=== PATIENT | male | born 1975 ===

== ENCOUNTER 2021-05-18 08:04 | Inpatient (IN) | payer SELFPAY ==
[~2021-05-18] VITALS: Ht 185.4 cm; Wt 98.7 kg
[2021-05-18] MEDS ORDERED: FENTANYL PF 100 MCG/2ML ONE ×2 (08:08→08:10)
[2021-05-18] MEDS ORDERED: HYDROCORTISONE 100 MG INJ. IVPush SCH (08:30)
[2021-05-18] MEDS ORDERED: PLEASE ENTER HEIGHT AND WEIGHT MC SCH (08:30)
[2021-05-18] MEDS ORDERED: HYDROCORTISONE 100 MG INJ. ONE (08:30)
[2021-05-18] MEDS ORDERED: DEXTROSE 5% 1,000 ML IV SCH (08:30)
[2021-05-18] MEDS ORDERED: VECURONIUM 10 MG IVPush ONE (08:30)
--- NOTE | 2021-05-18 08:30 | NUR ---
PT MEDICATED WITH FENTANYL, REFLECTED IN DOSAGE ON EMAR. PER DR MONTGOMERY, HOLD VECURONIUM AT THIS TIME.
[2021-05-18] MEDS ORDERED: FENTANYL PF 100 MCG/2ML IVPush ONE (09:00)
[2021-05-18] MEDS ORDERED: NOREPINEPHRINE 8 MG in SODIUM CHLORIDE 0.9% 242 ML IV PRN ×2 (09:00→09:30)
--- NOTE | 2021-05-18 09:05 | NUR ---
ASSIST RN::VALLADARES INSERTED PER PROTOCOL WITH OBSERVER JORDY ALVAREZ. NO URINE OUTPUT AT THIS TIME. [facility]OV[facility] HAD SCANT URINE PRESENT IN COLLECTION BAG.
[2021-05-18] MEDS ORDERED: PROPOFOL 100 ML IV ONE (09:26)
[2021-05-18] MEDS ORDERED: PHARMACY MAY ADJ FOR RENAL FX MC SCH (09:30)
[2021-05-18] MEDS ORDERED: ACETAMINOPHEN 650 MG/20.3 ML UDC PO/NG PRN (09:30)
[2021-05-18] MEDS ORDERED: BISACODYL 10 MG SUPP PR PRN (09:30)
[2021-05-18] MEDS ORDERED: LACTULOSE 20 GM/30 ML UDC NG PRN (09:30)
[2021-05-18] MEDS ORDERED: LIDOCAINE-MPF 1%, 2ML ENDO PRN (09:30)
[2021-05-18] MEDS ORDERED: SENNA/DOCUSATE TABLET NG PRN (09:30)
[2021-05-18] MEDS ORDERED: FENTANYL PF 100 MCG/2ML IVPush PRN (09:30)
[2021-05-18] MEDS ORDERED: SODIUM CHLORIDE 0.9% 1,000ML IVBOLUS ONE ×2 (09:30→10:30)
[2021-05-18] MEDS ORDERED: SENNA 176 MG/5 ML ORAL SOL NG PRN (09:30)
[2021-05-18] MEDS: PROPOFOL 100 ML IV PRN ×4 (09:37→21:33)
[2021-05-18 09:50] LABS: MEAN CORPUSCULAR HEMOGLOBIN 33.2 pg (27.5-34.5); MEAN CORPUSCULAR HGB CONC 32.1 g/dL (33.2-36.2); MEAN PLATELET VOLUME 9.9 fL (7.4-10.4); PLATELET COUNT 73 x10^3/uL (130-400); RED BLOOD COUNT 4.63 x10^6/uL (4.38-5.82); RED CELL DISTRIBUTION WIDTH 16.7 % (9.4-14.8)
[2021-05-18 09:57] LABS: PH, VENOUS 7.315 pH (7.320-7.420)
[2021-05-18 09:58] LABS: FIO2 100 %
--- NOTE | 2021-05-18 10:00 | NUR ---
US COMPLETED, LAB DRAWN. STILL NO OUTPUT WITH BLAINE. DR MONTGOMERY AT BEDSIDE FOR ASSESSMENT UPDATE. PLAN TO GO TO CT. RN TO CALL RT. SECOND RN AVAILABLE FOR TRANSPORT ASSIST. STILL AWAITING BEDASSIGNMENT AND ORDER.
[2021-05-18 10:01] LABS: ALBUMIN 2.4 g/dL (3.4-5.0); ANION GAP 19 mmol/L (5-15); CALCIUM 6.8 mg/dL (8.5-10.1); CHLORIDE 96 mmol/L (98-107); CREATININE 3.25 mg/dL (0.7-1.3)
[2021-05-18 10:05] LABS: ALKALINE PHOSPHATASE 134 U/L (45-117); BILIRUBIN,TOTAL 6.7 mg/dL (0.2-1.0); TOTAL PROTEIN 5.2 g/dL (6.4-8.2)
--- NOTE | 2021-05-18 10:07 | NUR ---
DR MONTGOMERY AT BEDSIDE, AWARE OF BP. PT TO REMAIN WITH PRESSURE CURRENTLY FOR CT SCAN. TESFAYE RICE CALLED, CT READY FOR PT.
[2021-05-18 10:08] LABS: INTERNATIONAL NORMALIZED RATIO 2.73 (0.93-1.1); PROTHROMBIN TIME 27.8 Seconds (9.6-11.5)
[2021-05-18 10:14] LABS: BAND#(MANUAL) 1.24 x10^3/uL; BANDS%(MANUAL) 7 % (0-7)
[2021-05-18 10:15] LABS: LYMPH#(MANUAL) 0.89 x10^3/uL (1-3.4); LYMPHS% (MANUAL) 5 % (22-44); MONOS#(MANUAL) 0.71 x10^3/uL (0.3-2.7); MONOS% (MANUAL) 4 % (2-9); SEG#(MANUAL) 14.87 x10^3/uL (1.8-6.8); SEGS% (MANUAL) 84 % (42-75)
[2021-05-18 10:16] LABS: <PLATELET ESTIMATE> DECREASED; <PLT MORPHOLOGY> NORMAL PLT MORPH; ANISOCYTOSIS 1+; POLYCHROMASIA 1+
[2021-05-18] MEDS: AMPICILLIN/SULBACTAM 3 GM in SODIUM CHLORIDE 0.9% 100 ML IV SCH ×2 (10:30→19:07)
[2021-05-18 10:35] LABS: ALANINE AMINOTRANSFERASE 3445 U/L (12-78); TRIGLYCERIDES 156 mg/dL (50-200)
[2021-05-18] MEDS ORDERED: OMNIPAQUE 350 MG/ML, 75ML BOTTLE ONE (10:49)
[2021-05-18 10:57] VITALS: BP 124/86
--- NOTE | 2021-05-18 11:01 | NUR ---
DISCUSSION WITH DR MONTGOMERY AND DR FRAUSTO REGARDING PT'S RESPIRATIONS AND CONCERNS WITH RT. RN DISCUSSED BENEFITS OF ADMINISTRATION OF VECURONIUM WITH PROPOFOL ADMINISTRATION. PER DR FRAUSTO, HOLD VECURONIUM.
[2021-05-18] MEDS ORDERED: LABETALOL 5MG/ML, 20ML IVPush PRN (11:30)
[2021-05-18] MEDS ORDERED: FENTANYL PF 1,000 MCG in SODIUM CHLORIDE 0.9% 80 ML IV PRN (11:30)
[2021-05-18] MEDS ORDERED: SODIUM BICARBONATE 8.4% 150 MEQ in DEXTROSE 5% 1,000 ML IV SCH (11:30)
[2021-05-18] MEDS ORDERED: HEPARIN 5,000 UNITS/ML, 1ML SQ SCH (11:30)
--- NOTE | 2021-05-18 11:38 | NUR ---
PT TRANSPORTED TO CCU WITH 2 RNS AND FIRE ENGINE OPERATOR.
--- NOTE | 2021-05-18 11:40 | NUR ---
FREQUENT VS MEASUREMENT PRINTED OUT FOR PHSYICAL CHART.
[2021-05-18] MEDS: NOREPINEPHRINE 32 MG in SODIUM CHLORIDE 0.9% 218 ML IV PRN ×3 (11:43→21:33)
[2021-05-18] MEDS: EPINEPHRINE 5 MG in SODIUM CHLORIDE 0.9% 245 ML IV PRN ×2 (11:45→19:19)
[2021-05-18] MEDS: HEPARIN 5,000 UNITS/ML, 1ML SQ SCH ×2 (13:04→20:41)
[2021-05-18] MEDS: PANTOPRAZOLE 40 MG IV IV SCH (13:08)
[2021-05-18] MEDS: FENTANYL PF 1,000 MCG in SODIUM CHLORIDE 0.9% 80 ML IV PRN ×2 (13:22→19:19)
[2021-05-18 15:13] LABS: TROPONIN I 0.384 ng/mL (0.000-0.045)
[2021-05-18] MEDS ORDERED: SODIUM BICARB 8.4%, 50ML SYRINGE ONE (15:18)
[2021-05-18] MEDS ORDERED: SODIUM BICARBONATE 1 MEQ/ML, 50ML VIAL IVPush ONE (15:30)
[2021-05-18 21:12] LABS: TROPONIN I 0.594 ng/mL (0.000-0.045)
[2021-05-18] MEDS ORDERED: VASOPRESSIN 20 UNIT in SODIUM CHLORIDE 0.9% 99 ML IV PRN (23:30)
[2021-05-19] MEDS: SODIUM BICARBONATE 8.4% 150 MEQ in DEXTROSE 5% 1,000 ML IV SCH ×2 (01:42→06:52)
[2021-05-19] MEDS ORDERED: HEPARIN 25,000 UNITS/250ML PMX 250 ML IV PRN (02:00)
[2021-05-19] MEDS ORDERED: HEPARIN 5,000 UNITS/ML, 1ML IV ONE (02:00)
[2021-05-19] MEDS ORDERED: HEPARIN 5,000 UNITS/ML, 1ML IV PRN (02:00)
[2021-05-19 02:08] LABS: MEAN CORPUSCULAR HGB CONC 33.7 g/dL (33.2-36.2); MEAN PLATELET VOLUME 10.7 fL (7.4-10.4); PLATELET COUNT 78 x10^3/uL (130-400); RED BLOOD COUNT 4.59 x10^6/uL (4.38-5.82); RED CELL DISTRIBUTION WIDTH 16.3 % (9.4-14.8)
[2021-05-19 02:26] LABS: <PLATELET ESTIMATE> DECREASED; <PLT MORPHOLOGY> NORMAL PLT MORPH; ANISOCYTOSIS 1+; BAND#(MANUAL) 1.42 x10^3/uL; BANDS%(MANUAL) 8 % (0-7); LYMPH#(MANUAL) 1.77 x10^3/uL (1-3.4); LYMPHS% (MANUAL) 10 % (22-44); MONOS#(MANUAL) 0.35 x10^3/uL (0.3-2.7); MONOS% (MANUAL) 2 % (2-9); POLYCHROMASIA 1+; SEG#(MANUAL) 14.16 x10^3/uL (1.8-6.8); SEGS% (MANUAL) 80 % (42-75)
[2021-05-19] MEDS: AMPICILLIN/SULBACTAM 3 GM in SODIUM CHLORIDE 0.9% 100 ML IV SCH ×2 (02:29→12:13)
[2021-05-19 05:03] LABS: ANION GAP 16 mmol/L (5-15); CHLORIDE 92 mmol/L (98-107); CREATININE 4.24 mg/dL (0.7-1.3)
[2021-05-19 05:06] LABS: MEAN CORPUSCULAR HEMOGLOBIN 34.1 pg (27.5-34.5); MEAN PLATELET VOLUME 10.9 fL (7.4-10.4); PLATELET COUNT 76 x10^3/uL (130-400); RED BLOOD COUNT 4.54 x10^6/uL (4.38-5.82); RED CELL DISTRIBUTION WIDTH 16.4 % (9.4-14.8)
[2021-05-19 05:18] LABS: CALCIUM 5.1 mg/dL (8.5-10.1)
[2021-05-19 05:27] LABS: ANISOCYTOSIS 1+; BAND#(MANUAL) 1.34 x10^3/uL; BANDS%(MANUAL) 7 % (0-7); LYMPH#(MANUAL) 1.72 x10^3/uL (1-3.4); LYMPHS% (MANUAL) 9 % (22-44); METAMYELOCYTES# (MANUAL) 0.57 x10^3/uL (0-0); METAMYELOCYTES% (MANUAL) 3 % (0-1); MONOS#(MANUAL) 0.19 x10^3/uL (0.3-2.7); MONOS% (MANUAL) 1 % (2-9); POLYCHROMASIA 1+; SEG#(MANUAL) 15.28 x10^3/uL (1.8-6.8); SEGS% (MANUAL) 80 % (42-75)
[2021-05-19 05:31] LABS: <PLATELET ESTIMATE> DECREASED; LARGE PLATELETS 1+; PMNS WITH VACUOLES 1+
[2021-05-19] MEDS: NOREPINEPHRINE 32 MG in SODIUM CHLORIDE 0.9% 218 ML IV PRN (06:52)
[2021-05-19] MEDS ORDERED: MAGNESIUM SULFATE PMX 2GM/50ML 50 ML IV ONE (07:00)
[2021-05-19] MEDS ORDERED: CALCIUM CHLORIDE 13.6 MEQ in SODIUM CHLORIDE 0.9% 100 ML IV ONE (07:00)
[2021-05-19] MEDS: PANTOPRAZOLE 40 MG IV IV SCH (09:58)
[2021-05-19] MEDS ORDERED: SODIUM BICARBONATE 8.4% 150 MEQ in DEXTROSE 5% 1,000 ML IV SCH (11:30)
[2021-05-19 12:47] LABS: ALBUMIN 2.4 g/dL (3.4-5.0); BILIRUBIN, DIRECT 5.1 mg/dL (0.1-0.2)
[2021-05-19 12:59] LABS: ALKALINE PHOSPHATASE 150 U/L (45-117); BILIRUBIN,TOTAL 7.1 mg/dL (0.2-1.0); TOTAL PROTEIN 4.7 g/dL (6.4-8.2)
[2021-05-19 13:05] LABS: ALANINE AMINOTRANSFERASE 6314 U/L (12-78)
[2021-05-19] MEDS ORDERED: LORazepam 2 MG/ML, 1ML IV ONE (19:00)
[2021-05-19] MEDS ORDERED: MORPHINE SULFATE 4 MG/ML, 1ML IV ONE (19:00)
[2021-05-19] MEDS ORDERED: MORPHINE 30MG/30ML PCA.SYR IV SCH (19:00)
[2021-05-19] MEDS: LORazepam 2 MG/ML, 1ML IV PRN ×2 (19:18→19:46)
[2021-05-19] MEDS ORDERED: SCOPOLAMINE PATCH, 1.5MG PATCH.TD72 TD PRN (19:30)
[2021-05-20] MEDS ORDERED: AMPICILLIN/SULBACTAM 3 GM in SODIUM CHLORIDE 0.9% 100 ML IV SCH
== END 2021-05-19 22:48 | disposition expired | DRG 208 ==
LOC: ED 10:48 → CCU 10:49 → ED 11:10 → CCU 05-19 10:30
PROVIDERS: ADMIT Internal Medicine; ATTEND Internal Medicine
PROC: 5A1945Z Respiratory Ventilation, 24-96 Consecutive Hours (ICD-10-PCS; principal; 2021-05-18)
PROC: 0BH17EZ Insertion of Endotracheal Airway into Trachea, Via Natural or Artificial Opening (ICD-10-PCS; 2021-05-18)
PROC: 02HV33Z Insertion of Infusion Device into Superior Vena Cava, Percutaneous Approach (ICD-10-PCS; 2021-05-18)
PROC: 03HY32Z Insertion of Monitoring Device into Upper Artery, Percutaneous Approach (ICD-10-PCS; 2021-05-18)
PROC: 4A133B1 Monitoring of Arterial Pressure, Peripheral, Percutaneous Approach (ICD-10-PCS; 2021-05-18)
PROC: 4A133J1 Monitoring of Arterial Pulse, Peripheral, Percutaneous Approach (ICD-10-PCS; 2021-05-18)
PROC: 4A143B0 Monitoring of Venous Pressure, Central, Percutaneous Approach (ICD-10-PCS; 2021-05-18)
DX: J96.01 Acute respiratory failure with hypoxia (principal); E43 Unspecified severe protein-calorie malnutrition; G93.41 Metabolic encephalopathy; K72.00 Acute and subacute hepatic failure without coma; N17.0 Acute kidney failure with tubular necrosis; I50.21 Acute systolic (congestive) heart failure; J69.0 Pneumonitis due to inhalation of food and vomit; I26.99 Other pulmonary embolism without acute cor pulmonale; D68.9 Coagulation defect, unspecified; E87.2 Acidosis; I42.9 Cardiomyopathy, unspecified; J98.11 Atelectasis; D69.6 Thrombocytopenia, unspecified; D72.829 Elevated white blood cell count, unspecified; D75.89 Other specified diseases of blood and blood-forming organs; E16.2 Hypoglycemia, unspecified; I48.91 Unspecified atrial fibrillation; F10.10 Alcohol abuse, uncomplicated; I46.9 Cardiac arrest, cause unspecified; E83.51 Hypocalcemia; E87.5 Hyperkalemia; K76.0 Fatty (change of) liver, not elsewhere classified; R57.0 Cardiogenic shock; Z72.0 Tobacco use; Z68.28 Body mass index [BMI] 28.0-28.9, adult
CPT/HCPCS: 36415; 36600; 71045; 71275; 76700; 80048; 80053; 80076; 82533; 82803; 82962; 83605; 83735; 84478; 84484; 85025; 85520; 85610; 85730; 87040; 87070; 87081; 87205; 93005; 93306; 93356; 93931; 93970; 94002; 94003; 96374; 96375; G0378; J0171; J0295; J1644; J2270; J2704; J3010; J7070; Q9967; C9113; J1720; J2060; J3475; J7030; J7050